=== PATIENT | male | born 1940 | race Caucasian/White ===

== ENCOUNTER → 2018-02-28 | Outpatient (CLI) | payer OTHER ==
[~2018-02-28] VITALS: Ht 177.8 cm; Wt 181.0 kg
[~2018-02-28] MED LIST: APPLE CIDER VI300 MG PO; ASPIRIN81 M2 PO; FISH OIL 1,0001 EAC7 PO; METOPROLOL SUCC50 MG PO; MULTI-VITAMIN-1 EACH PO; PRAVACHOL80 MG PO; VITAMIN C500 MG/15 PO; VITAMIN D31000 UNI2 PO
== END | disposition home or self-care (01) ==
LOC: AMB 13:29
DX: K31.7 Polyp of stomach and duodenum (principal); D12.8 Benign neoplasm of rectum; K92.2 Gastrointestinal hemorrhage, unspecified; Z85.038 Personal history of other malignant neoplasm of large intestine; Z90.49 Acquired absence of other specified parts of digestive tract; K64.9 Unspecified hemorrhoids; Z79.82 Long term (current) use of aspirin; Z88.6 Allergy status to analgesic agent
CPT/HCPCS: 88305; 88342 TC